=== PATIENT | male | born 1975 | race Two or more races ===

== ENCOUNTER 2020-04-12 20:08 | Emergency (ER) | payer SELFPAY ==
[2020-04-12] MEDS ORDERED: Proparacaine 0.5% Ophth Soln 15 ML Bottle EYELF ONE (20:30)
[2020-04-12] MEDS ORDERED: Erythromycin Base 0.5% Ophth Oint 1 GM Tube EYELF STA (20:57)
--- NOTE | 2020-04-12 21:00 | EDM.PDOC ---
ED HPI GENERAL MEDICAL PROBLEM - General Chief Complaint: Eye Problems Stated Complaint: SOMETHING BLEW INTO LEFT EYE Time Seen by Provider: 04/12/20 20:18 Source of Information: Reports: Patient History Limitations: Reports: No Limitations - History of Present Illness INITIAL COMMENTS - FREE TEXT/NARRATIVE: Mr. Bass is a most pleasant 45-year-old man with a past medical history significant for obesity, but no other diagnosed medical problems, as, according to the patient, he has never been to the doctor, however, he has had a few surgeries, so he has likely had some pre-op evaluations. 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 He states that something flew into his left eye. He has a foreign body sensation in his left eye, but no other problems, such as burning blurry vision, or decreased vision. No prior left eye injury, and the patient states that he is otherwise uninjured. Here in the ED, the patient's initial BP is elevated at 144/73, otherwise, he is hemodynamically stable, afebrile, saturating 96% on room air. Other than the left eye issue, the patient denies recent fever, chills, sore throat, ear pain, nasal or sinus congestion, cough, dyspnea, chest pain, palpitations, nausea, vomiting, constipation, diarrhea, abdominal pain, urinary symptoms, recent weight gain or weight loss, recent bloody bowel movements or black bowel movements, recent joint aches, headaches, or rashes. The patient does not have a PCP. Left Eye Pain Score (Numeric/FACES): 9 - Related Data Allergies Allergy/AdvReac Type Severity Reaction Status Date / Time No Known Allergies Allergy Verified 04/12/20 20:22 Home Meds: Home Meds . [No Known Home Meds] 04/12/20 [History] Past Medical History Endocrine/Metabolic History: Reports: Obesity/BMI 30+ - Past Surgical History HEENT Surgical History: Reports: Oral Surgery (2 or 3 wisdom teeth extracted), Tonsillectomy Musculoskeletal Surgical History: Reports: ORIF (right elbow) Social & Family History - Tobacco Use Smoking Status *Q: Never Smoker - Alcohol Use Alcohol Use History: No - Recreational Drug Use Recreational Drug Use: No - Living Situation & Occupation Living situation: Reports: , with Spouse, with Family (4 kids) Occupation: Employed (Construction) ED ROS GENERAL - Review of Systems Review Of Systems: Comprehensive ROS is negative, except as noted in HPI. ED EXAM GENERAL W FULL EYE - Physical Exam Exam: See Below Exam Limited By: No Limitations General Appearance: Alert, WD/WN, No Apparent Distress Eyelids: Bilateral: Normal Appearance Conjunctiva & Sclera: Bilateral: Normal Appearance Cornea Exam: Right: Normal Appearance, Left: Foreign Body (x 4), Examined with Flourescein Extraocular Movements: Bilateral: Intact Pupils: Normal Accommodation Pupillary Size: Bilateral: 5 mm Pupillary Reaction: Bilateral: Brisk Anterior Chamber: Bilateral: Normal Appearance ED EYE w/ Add Procedure - Eye Procedure Alcaine Drops Administered: Yes (Proparacaine) Eye FB Removal: Removal w/ Cotton Swab, Removal w/ Needle, Other (one of the 4 FBs reaquired the use of an eye sheila as well as a needle) Antibiotic Oinment/Drps Admin: Left Eye (Erythromycin) Course - Vital Signs Last Recorded V/S: Last Vital Signs Temp 36.2 C 04/12/20 20:55 Pulse 62 04/12/20 20:55 Resp 20 04/12/20 20:55 BP 144/73 H 04/12/20 20:55 Pulse Ox 96 04/12/20 20:55 - Orders/Labs/Meds Meds: Medications Discontinued Medications Generic Name Dose Route Start Last Admin Trade Name Freq PRN Reason Stop Dose Admin Erythromycin 1 gm 04/12/20 20:57 04/12/20 21:04 Erythromycin 0.5% Ophth Oint EYELF 04/12/20 20:58 1 applic ONETIME STA Administration Fluorescein Sodium 1 mg 04/12/20 20:19 04/12/20 21:11 Ful-[place] EYERT 04/12/20 20:20 Not Given ONETIME ONE Proparacaine HCl 2 ml 04/12/20 20:30 04/12/20 21:05 Proparacaine 0.5% Ophth Soln EYELF 04/12/20 20:31 2 drop ONETIME ONE Administration - Re-Assessments/Exams Free Text/Narrative Re-Assessment/Exam: 04/12/20 20:56 As above, after instillation of proparacaine and fluorescein, I identified 4 brown foreign bodies on the patient's left cornea - one at the 9:00 position, one at the 12:00 position, one at the 5:00 position, and one at the 3:00 position, approximately. The foreign bodies at the 9:00 and 3:00 positions were relatively large, while the ones at the 12:00 and 5:00 positions were very small. No corneal abrasions were identified. All 4 foreign bodies were removed using a needle and cotton swab, however, the one at the 3 o'clock position required the addition of an eye sheila, as well. None of the foreign bodies were metal; all were likely pieces of dirt. The patient tolerated the procedure well. I will have a nurse instill some erythromycin ointment to the patient's left eye, teach him how to do it, and give him the tube. If he is still having eye discomfort after 3 days, I would like him to follow-up with an Healthcare Risk Control Consultant or Medical Records Tech. Departure - Departure Time of Disposition: 20:58 Disposition: Home, Self-Care 01 Condition: Good Clinical Impression: Foreign body of left eye - Discharge Information *PRESCRIPTION DRUG MONITORING PROGRAM REVIEWED*: Not Applicable *COPY OF PRESCRIPTION DRUG MONITORING REPORT IN PATIENT [place]: Not Applicable Instructions: Eye Foreign Body, [id number] Referrals: PCP,None [Primary Care Provider] - Forms: ED Department Discharge Additional Instructions: You were seen in the emergency room after something flew into your left eye at work. On examination, for foreign bodies were found embedded in your left cornea. All 4 foreign bodies were removed in the ER. Nurse demonstrated to you how to instill erythromycin ointment. You may instill a 1 cm ribbon into your left lower eyelid up to 6 times a day, as needed for discomfort. If you are still having left eye discomfort or a foreign body sensation after 3 days, please follow-up with an Medical Records Tech or Healthcare Risk Control Consultant. If any other problems, please do not hesitate to return to the ER. Sepsis Event Note - Focused Exam Vital Signs: Vital Signs Temp Pulse Resp BP Pulse Ox 04/12/20 20:55 36.2 C 62 20 144/73 H 96 Date Exam was Performed: 04/12/20 Time Exam was Performed: 21:28
[2020-04-12] MEDS: Fluorescein 1 MG Ophth Strip EYERT ONE ×2 (21:05→21:11)
== END 2020-04-12 21:14 | disposition home or self-care (01) ==
LOC: JD.ED 20:08
DX: T15.92XA Foreign body on external eye, part unspecified, left eye, initial encounter (principal); E66.9 Obesity, unspecified
CPT/HCPCS: 65220; 99283; A9270; 99282